=== PATIENT | male | born 1960 | race African-American/Black ===

== ENCOUNTER 2017-10-12 08:30 | Emergency (ER) | payer OTHER ==
[~2017-10-12] VITALS: Ht 175.3 cm; Wt 106.3 kg
[~2017-10-12 08:30] MED LIST: CYCLOBENZAPRINE10 MG PO; FLEXERIL10 MG PO; HYDROCODON-ACE1 EAC7 PO; MEDROL DOSEPAK4 MG PO; MOTRIN800 MG PO; PERCOCET 5/31 TABLET PO; VALIUM5 MG PO
[2017-10-12 09:22] LABS: EOSINOPHIL (%) 1.9 % (0-5); EOSINOPHIL COUNT 0.1 K/uL (0-0.3); HEMATOCRIT 46.6 % (38.0-50.0); IMMATURE GRANULOCYTE (%) 0.2 % (0.0-0.7); INSTRUMENT ABS NEUTROPHIL CT 1.9 K/uL; LYMPHOCYTE COUNT 2.2 K/uL (1.0-2.8); MCH 29.8 PG (29.0-34.0); MCV 93.2 FL (86-99); MEAN PLAT.VOLUME 10.2 uM^3 (9.0-12.4); MONOCYTE (%) 10.4 % (3-12); MONOCYTE COUNT 0.5 K/uL (0-0.8); NEUTROPHIL (%) 40.2 % (45-76); NEUTROPHIL COUNT 1.9 K/uL (1.8-6.4); PLATELET COUNT 215 K/uL (156-360); RBC DIS.WIDTH-CV 12.4 % (11.8-14.6); RBC DIS.WIDTH-SD 42.6 % (39-53); WHITE BLOOD COUNT 4.6 K/uL (4.1-10.2)
[2017-10-12 09:29] LABS: CHLORIDE 107 mEq/L (99-109); POTASSIUM 4.4 mEq/L (3.7-5.4); SODIUM 139 mEq/L (136-147)
[2017-10-12 09:31] LABS: GLUCOSE 92 mg/dL (70-99)
[2017-10-12 09:32] LABS: ANION GAP 6 MEQ/L (2-14)
[2017-10-12 09:33] LABS: TOTAL BILIRUBIN 0.6 mg/dL (0.0-1.0)
[2017-10-12 09:35] LABS: ALKALINE PHOSPHATASE 56 IU/L (3-129); GFR ESTIMATE (CALCULATED) > 59 mL/min/
[2017-10-12 09:36] LABS: UREA NITROGEN (BUN) 15 mg/dL (9-23)
[2017-10-12 09:38] LABS: LIPASE 49 U/L (1.0-51.0)
[2017-10-12 09:40] LABS: TROP-I INTERPRETATION NEGATIVE; TROPONIN-I < 0.01 ng/mL (0.0-0.30)
[2017-10-12 09:47] LABS: ADD MIUA? YES; BILIRUBIN NEGATIVE; BLOOD SMALL; COLOR YELLOW ((YELLOW)); GLUCOSE (STRIP) NEGATIVE; KETONES NEGATIVE; LEUKOCYTES NEGATIVE; NITRITE NEGATIVE; PROTEIN (STRIP) NEGATIVE; SPECIFIC GRAVITY 1.021 (1.000-1.030)
[2017-10-12 09:57] LABS: BACTERIA NONE SEEN /HPF; EPITHELIAL CELLS RARE /HPF; MUCUS NONE SEEN /LPF; RED BLOOD CELLS 15-20 /HPF (0-5); WHITE BLOOD CELLS 0-5 /HPF (0-5)
[2017-10-12] MEDS ORDERED: TYLENOL WITH C1 EACH PO (10:02)
[2017-10-12 10:29] VITALS: BP 125/97
== END 2017-10-12 10:31 | disposition home or self-care (01) ==
LOC: EME 08:30
PROVIDERS: Emergency Medicine
DX: R10.13 Epigastric pain (principal); K21.9 Gastro-esophageal reflux disease without esophagitis
CPT/HCPCS: 71010; 80053; 81003; 83690; 84484; 85025; 93005; 99281; 99284